=== PATIENT | male | born 1995 | race Caucasian/White ===

== ENCOUNTER 2018-12-18 10:17 | Emergency (ER) | payer OTHER, BC ==
[~2018-12-18] VITALS: Ht 165.1 cm; Wt 62.0 kg
[2018-12-18 10:50] VITALS: BP 123/84
[2018-12-18] MEDS ORDERED: KETOROLAC 30 MG/1 ML ONE (11:39)
[2018-12-18] MEDS ORDERED: KETOROLAC 30 MG/1 ML IM ONE (12:00)
== END 2018-12-18 13:28 | disposition home or self-care (01) ==
LOC: ED 13:10
DX: S69.92XA Unspecified injury of left wrist, hand and finger(s), initial encounter (principal); W23.1XXA Caught, crushed, jammed, or pinched between stationary objects, initial encounter; Y93.89 Activity, other specified; Y92.69 Other specified industrial and construction area as the place of occurrence of the external cause; Y99.0 Civilian activity done for income or pay
CPT/HCPCS: 29260; 73110; 73130; 96372; 99283; J1885